=== PATIENT | female | born 1965 | race Caucasian/White ===

== ENCOUNTER 2019-03-18 11:24 | Outpatient (CLI) | payer BC ==
[~2019-03-18] VITALS: Ht 160 cm; Wt 72.3 kg
--- NOTE | ~2019-03-18 | HEMODYNAMI ---
PATIENT:ADE QUACH MEDICAL RECORD: [id number] : 61 LOCATION:[facility] ADMISSION DATE: 03/18/19 Generatedon:03/18/201914:44 Patient name: ADE QUACH Patient #: [id number] SSN: : 1965 Date of study: 03/18/2019 Page: Of Hemodynamic Procedure Report Patient Data Patient Demographics Procedure consent was obtained First Name: ADE Gender: Female Last Name: PHILOMENA : 1965 [facility] Initial: S Age: 53 year(s) Patient #: [id number] Race: Unknown Additional ID: [id number] Contact details [address]: [address] [place] [address] [address] State: [place] City: [place] Zip code: [address] Admission Admission Data Admission Date: 03/18/2019 Admission Time: 11:24 Arrival Date: 03/18/2019 Arrival Time: 14:00 Admit Source: Other Insurance Payor: Private health insurance Height (in.): 25.2 BSA: 0.9 (m2) Height (cm.): 64 BMI: 176.08 (kg/m2) Weight (lbs.): 159 Weight (kg.): 72.12 Lab Results Lab Result Date: 03/18/2019 Lab Result Time: 0:00 Biochemistry Name Units Result Min Max BUN mg/dl 17 --(---*)-- 7 18 Creatinine mg/dl 0.7 --(*---)-- 0.6 1.3 CBC Name Units Result Min Max Hemoglobin g/dl 16.1 --(--*-)-- 13.5 17.5 Procedure Procedure Types Cath Procedure Diagnostic Procedure LHC LHC w/Coronaries Sedation Charges Moderate Sedation up to 15 minutes Peripheral Cath Diagnostic Procedure 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 Peripheral Procedures Renal Arteriogram Abd/Extremity Aortagram Procedure Description Procedure Date Procedure Date: 03/18/2019 Procedure Start Time: 14:21 Procedure End Time: 14:41 Procedure Staff Name Function Johny Olivera MD Performing Physician Krys Lacey RT Monitor Kristy Morel RN Nurse Isis Peacock RT Scrub Procedure Data Cath Procedure Fluoroscopy Diagnostic fluoroscopy Total fluoroscopy Time: 3.1 time: 3.1 min min Diagnostic fluoroscopy Total fluoroscopy dose: 475 dose: 475 mGy mGy Contrast Material Contrast Material Type Amount (ml) Isovue 300 89 Entry Location Entry Primary Successful Side Size Upsize Upsize Entry Closure Succes sful Closure Location (Fr) 1 (Fr) 2 (Fr) Remarks Device Remarks Femoral Right 5 Fr Exoseal artery Estimated blood loss: 5 ml Diagnostic catheters Device Type Used For End Catheter Placement MULTIPACK JL 4.0 5Fr Left Coronary catheter Angiography MULTIPACK 3DRC 5Fr Right Coronary catheter Angiography MULTIPACK Pigtail 5 Fr LV Angiography catheter Procedure Complications No complications Procedure Medications Medication Administration Route Dosage 0.9% NaCl I.V. 100 ml/hr Oxygen etCO2 Nasal cannula 2 l/min Lidocaine 2% added to field 20 Heparin Flush Bag added to field 2 bags (1000units/500ml NS) Versed I.V. 2 mg Fentanyl I.V. 50 mcg Versed I.V. 2 mg Fentanyl I.V. 50 mcg Versed I.V. 2 mg Fentanyl I.V. 50 mcg Hemodynamics Rest BSA: 0.9 (m2) HGB: 16.1 (g/dl) O2 Consumption: Estimated: 90.82 (ml/min) O2 Cons umption indexed: Estimated:100.91 (ml/min/m) Heart Rate: 82 (bpm) Pressure Samples Time Site Value (mmHg) Purpose Heart Use Rate(bpm) 14:33 LV 119/5,10 Snapshot 106 14:34 AO 169/89(125) Pullback 112 14:34 LV 149/11,19 Pullback 112 Gradients Valve Time Site 1 Site 2 Mean SEP/DFP Peak To Heart Use (mmHg) (sec/min) Peak Rate (mmHg) (bpm) Aortic 14:34 LV AO 0 10 0 112 149/11,19 169/89(125) Calculations Valve P-P Mean Valve Index Valve Source Name Gradient Area Flow (cm2) Aortic 0 0 0 0 Snapshots Pre Cath Intra NCS Post Cath Vital Signs Time Heart Resp SPO2 etCO2 NIBP (mmHg) Rhythm Pain Sedation Rate (ipm) (%) (mmHg) Status Level (bpm) 14:08:18 88 10 99 40 183/106(139) NSR 0 (11) 10(A) , No pain 14:12:54 92 18 100 41.1 154/45(88) NSR 0 (11) 10(A) , No pain 14:17:08 85 15 97 38.9 145/82(104) NSR 0 (11) 10(A) , No pain 14:21:24 85 15 98 21.6 136/80(102) NSR 0 (11) 10(A) , No pain 14:25:36 85 12 99 28.4 148/102(135) NSR 0 (11) 10(A) , No pain 14:29:52 89 15 96 40.4 141/86(117) NSR 0 (11) 10(A) , No pain 14:34:51 108 15 98 38.1 Measuring NSR 0 (11) 10(A) , No pain 14:35:00 107 15 98 38.9 144/87(111) NSR 0 (11) 10(A) , No pain 14:39:11 106 15 100 44.1 159/103(154) NSR 0 (11) 10(A) , No pain Medications Time Medication Route Dose Verified Delivered Reason Notes Eff ectiveness by by 14:07:51 0.9% NaCl I.V. 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 2 mg Johny Kristy for Jarod Morel sedation RN 14:16:47 Fentanyl I.V. 50 Johny Kristy for mcg Jarod Morel sedation RN 14:21:48 Versed I.V. 2 mg Johny Kristy for Jarod Morel sedation RN 14:21:57 Fentanyl I.V. 50 Johny Kristy for mcg Jarod Morel sedation RN 14:27:02 Versed I.V. 2 mg Johny Kristy for Jarod Morel sedation RN 14:27:06 Fentanyl I.V. 50 Johny Kristy for [facility] [place] Jarod Morel sedation clay roaster Log Time Note 13:51:22 Patient Height : 25.2 inches 13:51:30 Patient Weight : 159 lbs 13:53:58 Lab Result : Hemoglobin 16.1 g/dl 13:53:58 Lab Result : Creatinine 0.7 mg/dl 13:53:58 Lab Result : BUN 17 mg/dl 13:54:09 1) 90+ Normal kidney functon but urine findings or structural abnormalities or genetic trait point to kidney disease. 13:54:36 Maximum allowable contrast does (3.7 X eGFR X 0.75)249.75 ml. 13:54:44 Diagnostic Cath status Elective 13:56:50 Kristy Morel RN sent for patient. Start room use. 13:56:51 Time tracking: Regular hours (M-F 7:00 - 5:00) 13:56:57 Plan of Care:Hemodynamics will remain stable., Cardiac rhythm will remain stable., Comfort level will be maintained., Respiratory function will remain adequate., Patient/ family verbilizes understanding of procedure., Procedure tolerated without complication., Recovers from procedure without complications.. 13:58:44 Admit Source: Other 13:58:50 Arrival Date: 03/18/2019 2:00:00 PM 13:59:10 Insurance Payor : Private health insurance 14:01:51 Patient received from Pre/Post Procedure Room to CCL 1 Alert and oriented. Tansferred to table in Supine position. 14:01:53 Warm blankets applied, and parvez hugger turned on for patient comfort. 14:01:53 Correct patient and procedure confirmed by team. 14:01:55 Signed procedure consent form obtained from patient. 14:01:56 ECG and BP/O2 sat monitors applied to patient. 14:07:04 Vital chart was started 14:07:51 0.9% NaCl 100 ml/hr I.V. was administered by Kristy Morel RN; used for procedure; 14:07:58 Oxygen 2 l/min etCO2 Nasal cannula was administered by Kristy Morel RN; used for procedure; 14:08:05 Lidocaine 2% 20ml vial added to field was administered by Johny Olivera MD; for local anesthetic; 14:08:10 Heparin Flush Bag (1000units/500ml NS) 2 bags added to field was administered by Johny Olivera MD; used for procedure; 14:10:03 Baseline sample Acquired. 14:10:07 Rhythm: sinus rhythm 14:10:09 Full Disclosure recording started 14:10:18 H&P Date Dictated: 03/18/2019 Within 30 days and on chart., H&P Addendum completed by physician on day of procedure. (MUST COMPLETE FOR ALL OUTPATIENTS). 14:10:21 Pre-procedure instructions explained to patient. 14:10:23 Pre-op teaching completed and patient verbalized understanding. 14:10:26 Family in patients room. 14:14:14 Patient NPO since Midnight. 14:14:19 Is the patient allergic to Iodine/contrast media? No. 14:14:21 Was the patient premedicated? No 14:14:23 Is patient on blood thinner?No 14:14:25 Patient diabetic? No. 14:14:37 Snore? Yes 14:14:38 Sleep apnea? No 14:14:40 Deviated septum? No 14:14:40 Opens mouth fully? Yes 14:14:41 Sticks out tongue? Yes 14:14:49 Airway obstruction? Yes cancer, copd 14:14:53 Dentures? No ? 14:14:56 Pre procedure: right dorsailis pedis pulse 2+ Normal; easily identifiable; not easily obliterated 14:15:01 Pre procedure: left dorsailis pedis pulse 2+ Normal; easily identifiable; not easily obliterated 14:15:03 Patient pain scale 0/10 ?. 14:15:15 IV patent on arrival in left forearm with 0.9% NaCl at O. 14:15:17 Lab results completed and on chart. 14:15:21 Right groin area was prepped with chlora-prep and draped in sterile fashion 14:15:22 Alarms reviewed by R. N. 14:15:23 Sharps counted by scrub and verified by R.N. 14:15:26 Physician arrived 14:15:27 --------ALL STOP TIME OUT------ 14:15:27 Final Timeout: patient, procedure, and site verified with staff and physician. All members of the team are in agreement. 14:15:30 Right groin site verified by team. 14:15:33 Fire Safety Assessment: A--An alcohol-based skin anteseptic being used preoperatively., C--Open oxygen or nitrous oxide is being used., D--An ESU, laser, or fiber-optic light is being used. 14:15:39 Physical assessment completed. ASA score P 2 - A patient with mild systemic disease as per Johny Olivera MD. 14:15:43 Sedation plan: IV Moderate Sedation Medication:Versed, Fentanyl 14:15:47 Use device set Femoral Dx 14:15:48 ACIST Syringe (07049) opened to sterile field. 14:15:49 Bag Decanter (2002S) opened to sterile field. 14:15:49 Medline Cath Pack ([id number]) opened to sterile field. 14:15:51 ACIST Hand Control (11695) opened to sterile field. 14:15:51 ACIST Manifold (26946) opened to sterile field. 14:15:52 DIAGNOSTIC Multipack 5Fr catheter set ([id number]) opened to sterile field. 14:15:52 Tegaderm 4 x 4 (1626W) opened to sterile field. 14:15:54 MICROPUNCTURE 4FR Cook ([id number]) opened to sterile field. 14:15:55 EMERALD Guide Wire (190-394) opened to sterile field. 14:15:56 SHEATH 5FR [place] (SYC814) opened to sterile field. 14:16:37 Versed 2 mg I.V. was administered by Kristy Morel RN; for sedation; 14:16:47 Fentanyl 50 mcg I.V. was administered by Kristy Morel RN; for sedation; 14:21:31 Procedure started. 14:21:39 Local anesthetic to right femoral artery with Lidocaine 2% by Johny Olivera MD.INITIAL ACCESS ONLY 14:21:48 Versed 2 mg I.V. was administered by Kristy Morel RN; for sedation; 14:21:57 Fentanyl 50 mcg I.V. was administered by Kristy Morel RN; for sedation; 14:26:43 A 5 Fr sheath was inserted into the Right Femoral artery 14:27:02 Versed 2 mg I.V. was administered by Kristy Morel RN; for sedation; 14:27:06 Fentanyl 50 mcg I.V. was administered by Kristy Morel RN; for sedation; 14:27:47 A MULTIPACK JL 4.0 5Fr catheter was advanced over the wire and used for Left Coronary Angiography. 14:28:22 LCA angiography performed. 14:28:42 Injector settings: Ml/sec: 3, Volume: 6, 14:29:28 Catheter removed. 14:29:44 A MULTIPACK 3DRC 5Fr catheter was advanced over the wire and used for Right Coronary Angiography. 14:30:30 RCA angiography performed. 14:30:32 Injector settings: Ml/sec: 3, Volume: 6, 14:30:43 Catheter removed. 14:30:52 Bilateral renal angiography performed. 14:33:27 Catheter removed. 14:33:35 A MULTIPACK Pigtail 5 Fr catheter was advanced over the wire and used for LV Angiography. 14:34:04 LV hemodynamics recorded. 14:34:06 LV gram done using BARAHONA 14:34:08 Injector settings: Ml/sec: 5, Volume: 15, 14:34:15 EF : 60 % 14:37:02 Abdominal Aortagram was performed. 14:37:39 EXOSEAL 5Fr (EX500) opened to sterile field. 14:37:45 Sheath removed intact; hemostasis achieved with Exoseal to the Right Femoral artery. 14:37:48 Procedure ended.(Physican Out) 14:38:47 Fluoroscopy time 03.10 minutes. 14:38:52 Fluoroscopy dose: 475 mGy 14:38:52 Flurop Dose total: 475 14:38:56 Contrast amount:Isovue 300 89ml. 14:38:58 Sharps counted by scrub and verified by R.N. 14:39:03 Insertion/operative site no bleeding no hematoma. 14:39:06 Post-op/insertion site Right Femoral artery dressed using a 4 x 4 and Tegaderm. 14:39:46 Post procedure rhythm: unchanged. 14:39:49 Estimated blood loss: 5 ml 14:39:51 Post procedure instruction explained to patient.Patient verbalizes understanding. 14:39:51 Patient needs reinforcement of post procedure teaching. 14:41:04 Procedure type changed to Cath procedure, Diagnostic procedure, LHC, LHC w/Coronaries, Sedation Charges, Moderate Sedation up to 15 minutes, Peripheral Cath Diagnostic Procedure, 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 Peripheral Procedures, Renal Arteriogram, Abd/Extremity, Aortagram 14:41:05 Procedure and supply charges have been captured, reviewed, submitted and are correct. 14:41:10 Procedure Complication : No complications 14:41:13 Vital chart was stopped 14:41:13 See physician's report for complete and final results. 14:41:38 Report given to Pre/Post Procedure Room. 14:41:41 Patient transfered to Pre/Post Procedure Room with Stretcher. 14:41:44 Procedure ended. 14:41:44 Full Disclosure recording stopped 14:41:47 End room use (Document Last) Device Usage Item Name Manufacture Quantity Catalog Hospital Part Current Minimal Lot# / Number Charge Number Stock Stock Serial# Code ACIST Syringe Acist 1 29931 457661 [id number] [id number] 20 ([id number]) [employer] Inc Bag Decanter Microtek 1 2001S 281877 37448 706620 5 (2001S) Medical Inc. Medline Cath Medline 1 [id number] 311300 69743 562163 5 Pack ([id number]) ACIST Hand Acist 1 13372 206945 513950 410199 5 Control Medical (27168) Systems Inc ACIST Acist 1 59872 480353 316236 492258 5 Manifold Medical (49647) Systems Inc DIAGNOSTIC Cardinal 1 [id number] 909492 41951 119808 30 Multipack 5Fr Health catheter set ([id number]) Tegaderm 4 x 3M 1 1626W 973506 659808 049111 5 4 (1626W) MICROPUNCTURE [employer] Medical 1 [id number] 007582 294627 160231 5 4FR Cook (I63700) EMERALD Guide Cardinal 1 502-455 103100 024616 775654 5 Wire Health (502-455) SHEATH 5FR Terumo 1 [id number] 479381 623349 450138 5 [place] (ZGY886) MULTIPACK JL Cardinal 1 [id number] 5 4.0 5Fr Health catheter MULTIPACK Cardinal 1 [id number] 5 3DRC 5Fr Health catheter MULTIPACK Cardinal 1 639302 5 Pigtail 5 Fr Health catheter EXOSEAL 5Fr Cardinal 1 EX500 233414 322031 687415 10 (EX500) Health Signature Audit [place] Stage Time Signature Unsigned Intra-Procedure 03/18/2019 Krys Lacey 2:44:11 PM RT(R) Signatures Monitor : Krys Lacey RT Signature : Date : Time : [address] [place] [address]
[2019-03-18] MEDS ORDERED: CATAPRES0.1 MG PO (11:50)
[2019-03-18] MEDS ORDERED: ULTRAM50 MG PO (11:51)
[2019-03-18] MEDS ORDERED: MORPHINE SULFAT15 M4 PO (11:51)
[2019-03-18] MEDS ORDERED: OXYCODONE HCL10 MG PO (11:51)
[2019-03-18] MEDS ORDERED: ALBUTEROL SULF8.5 GM INH (11:52)
[2019-03-18] MEDS ORDERED: TOPROL XL50 MG PO (11:53)
[2019-03-18 12:04] VITALS: BP 189/91; Ht 160 cm; Wt 72.3 kg
[2019-03-18 12:11] LABS: BASOPHILS 0.5 % (0-2); EOSINOPHILS 1.1 % (0-7); HEMATOCRIT 46.5 % (36.0-48.0); HEMOGLOBIN 16.1 g/dL (12-16); IMMATURE GRANULOCYTES 0.2 % (0-5); LYMPHOCYTES 27.1 % (15-50); MCH 32.5 pg (26.0-34.0); MCHC 34.6 g/dL (31.0-37.0); MCV 93.9 fL (80.0-100.0); MEAN PLATELET VOLUME 11.8 fL (7.4-10.4); MONOCYTES 9.5 % (2-11); NEUTROPHILS 61.6 % (40-80); PLATELET COUNT 227 10x3/uL (130-400); RBC 4.95 10x6/uL (4.00-5.40); RDW 13.3 % (11.5-14.5); WBC 8.6 10x3/uL (4.8-10.8)
[2019-03-18 12:23] LABS: CALC OSMOLALITY 281 mosm/kg (275-300); CALCIUM 9.5 mg/dL (8.5-10.1); CARBON DIOXIDE 30.9 mmol/L (21.0-32.0); CHLORIDE - SERUM 102 mmol/L (98-107); CREATININE - SERUM 0.7 mg/dL (0.6-1.3); GLUCOSE 125 mg/dL (74-106); POTASSIUM - SERUM 4.1 mmol/L (3.5-5.1); SODIUM 140 mmol/L (136-145); UREA NITROGEN 17 mg/dL (7-18); eGFR NON AFRICAN AMERICAN > 90 mL/min (90-120)
--- NOTE | 2019-03-18 14:55 | NUR ---
PATIENT ARRIVED TO ROOM 4. PLACE ON CM AND 2L NC. VSS. RIGHT GROIN 5F EXOSE[address] IN PL[address] WITH FEMOSTOP, NO S/S OF BLEEDING OR HEMATOMA. WILL CONTINUE TO MONITOR.
--- NOTE | 2019-03-18 15:10 | NUR ---
PATIENT RESTING, VSS ON 2L NC. RIGHT GROIN 5F EXOSEAL WIHT FEMOSTOP IN PLACE. NO S/S OF BLEEDING OR HEMATOMA. NO C/O PAIN, NUMBNESS, OR TINGLING. AT BEDSIDE UPDATED BY PHSYICIAN. NO N/V.
--- NOTE | 2019-03-18 15:40 | NUR ---
PATIENT RESTING. BEGIN FEMOSTOP AIR REMOVAL PROTOCOL, NO S/S OF BLEEDING OR HEMATOMA. NO C/O PAIN, NUMBNESS, OR TINGLING. VSS ON 1L NC. PRESENT AT BEDSIDE. NO N/V.
--- NOTE | 2019-03-18 16:10 | NUR ---
REMAINING AIR REMOVED FROM FEMOSTOP, DRESSING APPLIED TO RIGHT GROIN. NO S/S OF BLEEDING OR HEMATOMA. VSS ON 1L NC. NO C/O PAIN, NUMBNESS, OR TINGLING.
--- NOTE | 2019-03-18 16:40 | NUR ---
PATIENT AWAKE, HEAD OF BED AT 60 DEGREES. RIGHT GROIN DRESSING IS CDI, NO S/S OF BLEEDING OR HEMATOMA. NO C/O PAIN, NUMBNESS, OR TINGILNG. VSS ON ROOM AIR. PATIENT EATING TURKEY SANDWICH AND DRINKING SODA, NO N/V. WRITTEN AND VERBAL DISCHARGE INSTRUCTIONS GIVEN TO PATIENT AND SPOUSE, BOTH VOICE UNDERSTANDING.
--- NOTE | 2019-03-18 17:00 | NUR ---
IV REMOVED. PATIENT VOIDED WITHOUT DIFFICULTY. PATIENT TRANSPORTED VIA WHEELCHAIR TO CAR WITH SPOUSE DRIVING, ALL BELONGINGS WITH PATIENT.
== END 2019-03-18 17:00 ==
LOC: D.CATH 11:24
PROVIDERS: ATTEND Internal Medicine Cardiovascular Disease
DX: I25.110 Atherosclerotic heart disease of native coronary artery with unstable angina pectoris (principal); I15.0 Renovascular hypertension; Z01.812 Encounter for preprocedural laboratory examination

== ENCOUNTER 2019-04-23 10:38 | Outpatient (CLI) | payer BC ==
[~2019-04-23] VITALS: Ht 160 cm; Wt 75.0 kg
--- NOTE | ~2019-04-23 | HEMODYNAMI ---
PATIENT:ADE QUACH MEDICAL RECORD: [id number] : 61 LOCATION:[facility] ADMISSION DATE: 04/23/19 Generatedon:04/23/201913:35 Patient name: ADE QUACH Patient #: [id number] : 1965 Date of study: 04/23/2019 Page: Of Hemodynamic Procedure Report Patient Data Patient Demographics Procedure consent was obtained First Name: ADE Gender: Female Last Name: PHILOMENA : 1965 Middle Initial: S Age: 53 year(s) Patient #: [id number] Race: SSN: [id number] Additional ID: [id number] Contact details Address: [address] [place] [address] [address] State: [place] City: [place] Zip code: [address] Past Medical History Allergies: No known allergies Admission Admission Data Admission Date: 04/23/2019 Admission Time: 10:38 Arrival Date: 04/23/2019 Arrival Time: 13:00 Admit Source: Other Insurance Payor: Private health insurance Height (in.): 62.99 BSA: 1.78 (m2) Height (cm.): 160 BMI: 29.3 (kg/m2) Weight (lbs.): 165.35 Weight (kg.): 75 Lab Results Lab Result Date: 04/23/2019 Lab Result Time: 0:00 Biochemistry Name Units Result Min Max BUN mg/dl 14 --(--*-)-- 7 18 Creatinine mg/dl 0.8 --(-*--)-- 0.6 1.3 CBC Name Units Result Min Max Hemoglobin g/dl 17 --(---*)-- 13.5 17.5 Procedure Procedure Types Cath Procedure Peripheral Cath Diagnostic Procedure Real Time Analyst Peripheral Procedures Pxpzk-Rhedaax-Xzr-Off Procedure Description Procedure Date Procedure Date: 04/23/2019 Procedure Start Time: 13:12 Procedure End Time: 13:22 Procedure Staff Name Function Rocky Arevalo RN Nurse Johny Olivera MD Performing Physician Blake Hargrove RN Nurse Zina Carrera RT Scrub Alethea Ottosen RT Monitor Procedure Data Cath Procedure Fluoroscopy Diagnostic fluoroscopy Total fluoroscopy Time: 1.2 time: 1.2 min min Diagnostic fluoroscopy Total fluoroscopy dose: 170 dose: 170 mGy mGy Contrast Material Contrast Material Type Amount (ml) Isovue 300 85 Entry Location Entry Primary Successful Side Size Upsize Upsize Entry Closure Succes sful Closure Location (Fr) 1 (Fr) 2 (Fr) Remarks Device Remarks Femoral Left 5 Fr Exoseal artery Estimated blood loss: 5 ml Diagnostic catheters Device Type Used For End Catheter Placement DIAGNOSTIC UF 5Fr Procedure catheter ([id number]) Procedure Complications No complications Procedure Medications Medication Administration Route Dosage 0.9% NaCl I.V. 100 ml/hr Oxygen 8 l/min Heparin Flush Bag added to field 2 bags (1000units/500ml NS) Lidocaine 2% added to field 20 Vasotec I.V. 2.5 mg Versed I.V. 2 mg Fentanyl I.V. 100 mcg Versed I.V. 2 mg Fentanyl I.V. 100 mcg Versed I.V. 2 mg Hemodynamics Rest BSA: 1.78 (m2) HGB: 17 (g/dl) O2 Consumption: Estimated: 176.84 (ml/min) O2 Cons umption indexed: Estimated:99.35 (ml/min/m) Heart Rate: 78 (bpm) Snapshots Pre Cath Intra NCS Post Cath Vital Signs Time Heart Resp SPO2 etCO2 NIBP (mmHg) Rhythm Pain Sedation Rate (ipm) (%) (mmHg) Status Level (bpm) 12:57:08 79 15 100 0 202/109(170) NSR 0 (11) 10(A) , No pain 13:01:26 75 15 99 0 180/101(131) NSR 0 (11) 10(A) , No pain 13:05:46 76 13 97 0 170/101(129) NSR 0 (11) 10(A) , No pain 13:10:06 89 15 98 0 172/112(146) NSR 0 (11) 10(A) , No pain 13:14:20 80 13 96 0 157/94(124) NSR 0 (11) 10(A) , No pain 13:18:34 85 12 94 0 142/91(122) NSR 0 (11) 9(A) , No pain 13:22:46 81 15 96 0 145/87(122) NSR 0 (11) 9(A) , No pain Medications Time Medication Route Dose Verified Delivered Reason Notes Ef fectiveness by by 12:53:50 0.9% NaCl I.V. 100 Blake Blake Per ml/hr Delvin patel RN RN 12:54:20 Oxygen simple 8 Blake Blake for low 02 mask l/min Delvin castillo RN RN 12:54:32 Heparin Flush added 2 Blake Blake used for Bag to bags Lorjosué Hargrove procedure (1000units/500ml field RN RN NS) 12:54:43 Lidocaine 2% added 20ml Blake Blake for local to vial Lorigan Delvin anesthetic field RN RN 13:00:36 Vasotec I.V. 2.5 Blake Blake for mg Delvin Hargrove hypertension RN RN 13:08:52 Versed I.V. 2 mg Blake Blake for sedation Delvin Hargrove RN RN 13:09:02 Fentanyl I.V. 100 Blake Blake for sedation mcg Delvin Hargrove RN RN 13:10:36 Versed I.V. 2 mg Blake Blake for sedation Delvin Hargrove RN RN 13:13:40 Fentanyl I.V. 100 Blake Blake for sedation mcg Delvin Hargrove RN RN 13:15:30 Versed I.V. 2 mg Blake Blake for sedation Delvin Hargrove RN flume tender Log Time Note 12:33:28 Informed consent obtained and on chart 12:33:33 Diagnostic Cath Status : Elective 12:36:05 Admit Source: Other 12:36:45 Arrival Date: 04/23/2019 1:00:00 PM 12:37:14 Insurance Payor : Private health insurance 12:38:40 Lab Result : Hemoglobin 17 g/dl 12:38:40 Lab Result : Creatinine 0.8 mg/dl 12:38:40 Lab Result : BUN 14 mg/dl 12:38:56 Procedure Status Peripheral. 12:39:18 Rocky Arevalo RN sent for patient. Start room use. 12:39:19 Time tracking: Regular hours (M-F 7:00 - 5:00) 12:39:24 Plan of Care:Hemodynamics will remain stable., Cardiac rhythm will remain stable., Comfort level will be maintained., Respiratory function will remain adequate., Patient/ family verbilizes understanding of procedure., Procedure tolerated without complication., Recovers from procedure without complications.. 12:39:42 Patient Weight : 165.35 lbs 12:39:44 Patient Height : 62.99 inches 12:47:22 Patient received from Pre/Post Procedure Room to CCL 1 Alert and oriented. Tansferred to table in Supine position. 12:47:24 Correct patient and procedure confirmed by team. 12:47:24 Warm blankets applied, and parvez hugger turned on for patient comfort. 12:47:25 ECG and BP/O2 sat monitors applied to patient. 12:52:42 Full Disclosure recording started 12:52:55 H&P Date Dictated: 04/04/2019 Within 30 days and on chart., H&P Addendum completed by physician on day of procedure. (MUST COMPLETE FOR ALL OUTPATIENTS). 12:52:56 Pre-procedure instructions explained to patient. 12:52:57 Pre-op teaching completed and patient verbalized understanding. 12:53:50 0.9% NaCl 100 ml/hr I.V. was administered by Blake Hargrove RN; Per physician; 12:54:11 Family in patients room. 12:54:12 Patient NPO since Midnight. 12:54:20 Oxygen 8 l/min simple mask was administered by Blake Hargrove RN; for low 02 sats; 12:54:27 Patient allergic to No known allergies 12:54:32 Heparin Flush Bag (1000units/500ml NS) 2 bags added to field was administered by Blake Hargrove RN; used for procedure; 12:54:43 Lidocaine 2% 20ml vial added to field was administered by Blake Hargrove RN; for local anesthetic; 12:54:49 Vital chart was started 12:54:51 Is patient on blood thinner?No 12:54:53 Patient diabetic? No. 12:54:57 Previous problem with sedation/anesthesia? No ? 12:54:59 Snore? Yes 12:55:00 Sleep apnea? No 12:55:01 Deviated septum? No 12:55:02 Opens mouth fully? Yes 12:55:03 Sticks out tongue? Yes 12:55:08 Airway obstruction? Yes COPD 12:55:11 Dentures? No ? 12:58:10 Pre procedure: right dorsailis pedis pulse 2+ Normal; easily identifiable; not easily obliterated 12:58:13 Pre procedure: left dorsailis pedis pulse 2+ Normal; easily identifiable; not easily obliterated 12:58:16 Patient pain scale 0/10 ?. 12:58:21 IV patent on arrival in left hand with 0.45%NaCl at O. 12:58:24 Lab results completed and on chart. 12:58:26 Alarms reviewed by R. N. 12:58:27 Sharps counted by scrub and verified by R.N. 12:58:30 Bilateral groins area was prepped with chlora-prep and draped in sterile fashion 12:58:34 Use device set CATH PACK 12:58:35 ACIST Syringe (27923) opened to sterile field. 12:58:36 Medline Cath Pack ([id number]) opened to sterile field. 12:58:36 ACIST Manifold (65628) opened to sterile field. 12:58:36 ACIST Hand Control (98670) opened to sterile field. 12:58:37 EMERALD Guide Wire (526-380) opened to sterile field. 12:58:37 Bag Decanter (2002S) opened to sterile field. 12:58:49 SHEATH 5FR [place] (YHC470) opened to sterile field. 13:00:36 Vasotec 2.5 mg I.V. was administered by Blake Hargrove RN; for hypertension; 13:03:47 Baseline sample Acquired. 13:03:51 Rhythm: sinus rhythm 13:05:44 --------ALL STOP TIME OUT------ 13:05:45 Final Timeout: patient, procedure, and site verified with staff and physician. All members of the team are in agreement. 13:05:46 Bilateral groins site verified by team. 13:05:49 Fire Safety Assessment: A--An alcohol-based skin anteseptic being used preoperatively., C--Open oxygen or nitrous oxide is being used., D--An ESU, laser, or fiber-optic light is being used. 13:05:52 Physical assessment completed. ASA score P 2 - A patient with mild systemic disease as per Johny Olivera MD. 13:05:54 2) 60-89 Mildly reduced kidney function, and other findings (as for stage 1) point to kidney disease. 13:05:59 Maximum allowable contrast dose (3.7 X eGFR X 0.75)207 ml. 13:06:05 Sedation plan: IV Moderate Sedation Medication:Versed, Fentanyl 13:06:16 Zero performed for pressure channel P1 13:08:16 Zero performed for pressure channel P1 13:08:52 Versed 2 mg I.V. was administered by Blake Hargrove RN; for sedation; 13:09:02 Fentanyl 100 mcg I.V. was administered by Blake Hargrove RN; for sedation; 13:09:33 Procedure started. 13:10:36 Versed 2 mg I.V. was administered by Blake Hargrove RN; for sedation; 13:12:06 Local anesthetic to left femerol artery with Lidocaine 2% by Johny Olivera MD.INITIAL ACCESS ONLY 13:12:45 Zero performed for pressure channel P1 13:13:08 A 5 Fr sheath was inserted into the Left Femoral artery 13:13:32 A DIAGNOSTIC UF 5Fr catheter ([id number]) was advanced over the wire and used for Procedure. 13:13:40 Fentanyl 100 mcg I.V. was administered by Blake Hargrove RN; for sedation; 13:15:11 Abdominal angiogram w/ runoff was performed. 13:15:30 Versed 2 mg I.V. was administered by Blake Hargrove RN; for sedation; 13:15:55 Left leg runoff performed. 13:16:37 Right leg runoff performed. 13:16:42 Catheter removed. 13:17:10 EXOSEAL 5Fr (EX500) opened to sterile field. 13:19:46 Sheath removed intact; hemostasis achieved with Exoseal to the Left Femoral artery. 13:19:48 Procedure ended.(Physican Out) 13:19:59 Fluoroscopy time 01.20 minutes. 13:20:03 Fluoroscopy dose: 170 mGy 13:20:03 Flurop Dose total: 170 13:20:16 Dose Area Product 75351 mGy/cm. 13:20:37 Contrast amount:Isovue 300 85ml. 13:20:41 Maximum allowable dose exceeded? No. 13:20:42 Sharps counted by scrub and verified by R.N. 13:20:45 Post-op/insertion site Left Femoral artery dressed using a 4 x 4 and Tegaderm. 13:21:14 Post-procedure physical assessment completed. ASA score P 2 - A patient with mild systemic disease as per Johny Olivera MD. 13:21:17 Post procedure rhythm: sinus rhythm 13:21:20 Estimated blood loss: 5 ml 13:21:21 Patient needs reinforcement of post procedure teaching. 13:21:21 Post procedure instruction explained to patient.Patient verbalizes understanding. 13:22:03 Procedure and supply charges have been captured, reviewed, submitted and are correct. 13:22:05 Procedure Complication : No complications 13:22:07 Vital chart was stopped 13:22:08 See physician's report for complete and final results. 13:22:10 Report given to Pre/Post Procedure Room. 13:22:39 Patient transfered to Pre/Post Procedure Room with Bed. 13:22:41 Full Disclosure recording stopped 13:22:41 Procedure ended. 13:22:46 End room use (Document Last) Device Usage Item Name Manufacture Quantity Catalog Hospital Part Current Minimal L ot# / Number Charge Number Stock Stock Serial# Code ACIST Acist 1 14075 [id number] [id number] 20 Syringe Medical (91551) Systems Inc ACIST Hand Acist 1 23277 180355 974126 369521 5 Control Medical (77136) Systems Inc ACIST Acist 1 70081 224539 488462 639795 5 Manifold Medical (24764) Systems Inc Medline Medline 1 [id number] 684141 04844 737610 5 Cath Pack ([id number]) Bag Microtek 1 396102 81628 963993 5 Decanter Medical Inc. () EMERALD Cardinal 1 502-455 741547 811141 609006 5 Guide Wire Health (502-455) SHEATH 5FR Terumo 1 RLC227 187302 806250 841697 5 [place] (QVM775) DIAGNOSTIC Cardinal 1 [id number] 002631 545385 853437 10 UF 5Fr Health catheter ([id number]) EXOSEAL 5Fr Cardinal 1 EX500 408729 985585 [id number] 10 (EX500) Health Signature Audit [place] Stage Time Signature Unsigned Intra-Procedure 04/23/2019 Alethea Pryor 1:35:09 PM RT(R) Signatures Nurse : Buffie Arevalo RN Signature : Date : Time : Performing Physician : Signature : Johny Olivera MD Date : Time : Nurse : Blake Lorigan Signature : RN Date : Time : Monitor : Alethea Pryor Signature : RT Date : Time : [address] [place] [address]
[~2019-04-23 10:38] MED LIST: ALBUTEROL SULF8.5 GM INH; CATAPRES0.1 MG PO; MORPHINE SULFAT15 M4 PO; OXYCODONE HCL10 MG PO; TOPROL XL50 MG PO; ULTRAM50 MG PO
[2019-04-23] MEDS ORDERED: XANAX0.25 MG PO (10:55)
[2019-04-23] MEDS ORDERED: TRELEGY ELLIPT1 EACH INH (10:58)
[2019-04-23 11:01] VITALS: BP 220/120; Ht 160 cm; Wt 75.0 kg
[2019-04-23 11:25] LABS: BASOPHILS 0.9 % (0-2); EOSINOPHILS 2.2 % (0-7); IMMATURE GRANULOCYTES 0.1 % (0-5); LYMPHOCYTES 34.5 % (15-50); MCH 32.8 pg (26.0-34.0); MCHC 35.4 g/dL (31.0-37.0); MCV 92.5 fL (80.0-100.0); MEAN PLATELET VOLUME 12.2 fL (7.4-10.4); MONOCYTES 7.9 % (2-11); NEUTROPHILS 54.4 % (40-80); PLATELET COUNT 233 10x3/uL (130-400); RBC 5.19 10x6/uL (4.00-5.40); RDW 13.6 % (11.5-14.5); WBC 7.9 10x3/uL (4.8-10.8)
[2019-04-23 11:56] LABS: CALC OSMOLALITY 279 mosm/kg (275-300); CALCIUM 9.3 mg/dL (8.5-10.1); CARBON DIOXIDE 30.6 mmol/L (21.0-32.0); CHLORIDE - SERUM 102 mmol/L (98-107); CREATININE - SERUM 0.8 mg/dL (0.6-1.3); GLUCOSE 100 mg/dL (74-106); POTASSIUM - SERUM 3.8 mmol/L (3.5-5.1); SODIUM 140 mmol/L (136-145); UREA NITROGEN 14 mg/dL (7-18); eGFR NON AFRICAN AMERICAN 79 mL/min (90-120)
--- NOTE | 2019-04-23 11:59 | NUR ---
PT GIVEN PO CLONIDINE FOR HTN. RECHECK OF BP IS 183/108.
[2019-04-23 12:01] VITALS: BP 183/108
--- NOTE | 2019-04-23 13:42 | NUR ---
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 REPORT REC'D FROM Milady CALLES RN. PT DROWSY BUT VERBALLY AROUSABLE. 5FR EXOCELE TO L GROIN, DRESSING CDI NO BLEEDING OR SWELLING NOTED. LEG PINK AND WARM, PEDAL PULSES PALPABLE. IV PATENT INFUSING VIA ORDERS PER L HAND. HR NSR RATE 78, BP 144/83, O3 SAT 92 ON ROOM AIR. PT INSTRUCTED TO KEEP HEAD ON PILLOW AND LEG STRAIGHT, SHE VERBALIZED UNDERSTANDING. CALL LIGHT IN REACH, AT BEDSIDE
--- NOTE | 2019-04-23 14:00 | NUR ---
PT RESTING COMFORTABLY, L GROIN SOFT, DRESSING CDI NO BLEEDING OR SWELLING NOTED. VSS. CALL LIGHT IN REACH, AT BEDSIDE. PT DENIES PAIN OR DISCOMFORT.
--- NOTE | 2019-04-23 14:33 | NUR ---
PT MORE AWAKE, DENIES PAIN OR NEEDS. DR CARDONA AT , DISCUSSED PLAN OF CARE AND PROCEDURE RESULTS. L GROIN REMAINS SOFT, DRESSING CDI NO BLEEDING OR SWELLING NOTED. CALL LIGHT IN REACH, AT BEDSIDE.
--- NOTE | 2019-04-23 15:00 | NUR ---
PT RESTING COMFORTABLY, DENIES PAIN OR DISCOMFORT. OFFERED SANDWICH TRAY, STATES NO I AM GOING TO EAT WHEN I LEAVE. HOB ELEVATED SLIGHTLY. L GROIN REMAINS SOFT, NO BLEEDING OR SWELLING NOTED. LEGS PINK AND WARM, PEDAL PULSES PALPABLE. CALL LIGHT IN REACH
--- NOTE | 2019-04-23 15:15 | NUR ---
DISCHARGE TEACHING DONE W PT AND , BOTH VERBALIZED UNDERSTANDING. IV REMOVED W CATH INTACT, MONITORS REMOVED AND PT UP TO DRESS FOR DISCHARGE.
--- NOTE | 2019-04-23 15:22 | NUR ---
PT DISCHARGED VIA WC TO PRIVATE VEHICLE W ALL BELONGINGS.
== END 2019-04-23 15:20 | disposition home or self-care (01) ==
LOC: D.CATH 10:38
PROVIDERS: ATTEND Internal Medicine Cardiovascular Disease
DX: I73.9 Peripheral vascular disease, unspecified (principal); R94.39 Abnormal result of other cardiovascular function study; Z01.812 Encounter for preprocedural laboratory examination